=== PATIENT | male | born 2000 | race American Indian/Alaskan Native ===

== ENCOUNTER 2025-07-22 16:17 | Emergency (ER) | payer SELFPAY ==
[~2025-07-22] VITALS: Ht 180.3 cm; Wt 75.0 kg
[~2025-07-22 16:17] MED LIST: LISD30CA2 PO; PROP20TA6 PO
[2025-07-22 16:53] LABS: MEAN PLATELET VOLUME 7.8 FL (7.4-10.4); RED CELL DISTRIBUTION WIDTH 13.8 % (11.5-14.5)
[2025-07-22 17:17] LABS: CREATININE 0.95 MG/DL (0.60-1.10); ETHANOL < 10 MG/DL (<10); TOTAL CARBON DIOXIDE 25.8 MMOL/L (24-32); eCRCL 127 ML/MIN; eGFR > 90 ML/MIN
[2025-07-22] MEDS: ziprasidone IM 20mg inj **IM only IM ONE (19:06)
[2025-07-22 20:00] LABS: LEUKOCYTE ESTERASE ,URINE NEGATIVE (Neg); NITRITES, URINE NEGATIVE (Neg); OCCULT BLOOD,URINE NEGATIVE (Neg)
[2025-07-22 20:02] LABS: UA COLLECTION TYPE NON-SPECIFIED
[2025-07-22 20:20] LABS: URINE AMPHETAMINE SCREEN NEGATIVE (Neg); URINE BARBITUATE SCREEN NEGATIVE (Neg); URINE BENZODIAZEPINES SCREEN NEGATIVE (Neg); URINE CANNABINOID SCREEN POSITIVE (Neg); URINE COCAINE SCREEN NEGATIVE (Neg); URINE METHADONE SCREEN NEGATIVE (Neg); URINE OPIATE SCREEN NEGATIVE (Neg); URINE PHENCYCLIDINE SCREEN NEGATIVE (Neg)
[2025-07-23] MEDS ORDERED: NO HOME MEDS (02:52)
--- NOTE | 2025-07-23 06:58 | Physician Documentation ---
History of Present Illness General Chief Complaint: 5150 Stated Complaint: HOLD Time Seen by MD: 06:49 Mode of Arrival: Police History of Present Illness Initial Comments History obtained from a letter written by the patient's father. The patient is a 24-year-old male who arrived here on a 5150 hold. He has a history of mental illness and has been held previously for 1-2 months in [place]. His father sent a letter with him expressing serious concerns that he is a danger to himself and others. He has been having delusions and a desire to obtain a fire arm. He hears voices according to his father and talks to them. In the emergency department he became agitated to the degree that required an injection of Geodon last night. He stopped taking all prescribed medications about three weeks ago. Medication Reconciliation Allergies: Coded Allergies: pineapple (Unverified Allergy, Unknown, 07/22/25) Miscellaneous Medications Home Med List (No Home Medications), (Reported) Review of Systems ROS Unable to obtain due to mental illness. Physical Exam Physical Exam Vital Signs: Temperature: 97.6, Source: Oral, Heart Rate: 64, Respiratory Rate: 16, BP: 102/64, Pulse Oximetry: 99, Weight: 75.000 Oxygen Flow Rate: 0 Physical Exam Physical Exam Vitals and nursing note reviewed. Constitutional: General: Patient is awake, alert, oriented x 4 in no acute distress and well appearing. Speech is clear and lucid. Appearance: Patient is not ill-appearing, toxic-appearing or diaphoretic. HENT: Head: Normocephalic and atraumatic. Mouth/Throat: Mouth: Mucous membranes are moist. Pharynx: Oropharynx is clear. Eyes: General: No scleral icterus. Extraocular Movements: Extraocular movements intact. Pupils: Pupils are equal, round, and reactive to light. Neck: Supple, no Kernig or Brudzinski sign. Cardiovascular: Rate and Rhythm: Normal rate and regular rhythm. Heart sounds: No murmur heard. Pulmonary: Effort: No respiratory distress. Breath sounds: No wheezing, rhonchi or rales. Abdominal: General: There is no distension. Palpations: There is no fluid wave, hepatomegaly or mass. Tenderness: There is no abdominal tenderness. There is no guarding. Musculoskeletal: General: No swelling or deformity. Skin: Coloration: Skin is not jaundiced. Findings: No erythema or rash. Neurological: Mental Status: Patient is alert. Progress Results/Orders Results/Orders Orders - YAMEL MENDEZ MD Risperidone Tablet (Risperdal Tablet) (07/23/25 08:00) Behavioral Restraints (07/23/25 ) Completed Orders - YAMEL MENDEZ MD Ziprasidone Im Inj. (Geodon ImIm Onl (07/23/25 16:25) Ziprasidone Im Inj. (Geodon ImIm Onl (07/23/25 16:26) Diphenhydramine Inj (Benadryl Inj.) (07/23/25 17:45) Lorazepam Inj (Ativan Inj) (07/23/25 17:45) Medications Received in ER Medications (Trade) Dose Ordered Sig/Jennie Route PRN Reason Start Time Stop Time Status Last Admin Dose Admin (Geodon IMIM ONLY) 40 mg ONCE ONCE IM 07/23/25 16:25 07/23/25 16:27 DC 07/23/25 16:29 40 MG (Benadryl inj.) 50 mg ONCE ONCE IM 07/23/25 17:45 07/23/25 17:46 DC 07/23/25 17:51 50 MG (Ativan inj) 2 mg ONCE ONCE IM 07/23/25 17:45 07/23/25 17:46 DC 07/23/25 17:50 2 MG Vital Signs 07/22/25 07/22/25 07/22/25 07/22/25 16:25 16:43 17:15 18:30 Temp 98.0 Pulse 102 Resp 18 15 16 16 B/P (MAP) 125/89 Pulse Ox 99 O2 Flow Rate 0 07/22/25 07/22/25 07/22/25 07/22/25 18:31 18:45 18:45 19:00 Temp 97.6 97.6 97.5 97.5 Pulse 68 71 71 62 Resp 14 18 18 20 B/P (MAP) 120/70 (87) 119/67 (84) 119/67 (84) 105/66 (79) Pulse Ox 99 99 97 97 07/22/25 07/22/25 07/23/25 07/23/25 19:15 19:30 08:05 17:20 Temp 97.2 97.6 Pulse 60 64 100 Resp 20 16 16 20 B/P (MAP) 99/60 (73) 102/64 (77) 113/78 (90) Pulse Ox 99 99 100 O2 Flow Rate 0 07/23/25 07/23/25 07/23/25 17:35 17:50 17:50 Pulse 72 112 Resp 18 22 20 B/P (MAP) 123/78 (93) 109/63 (78) Pulse Ox 95 98 O2 Flow Rate 0 0 Laboratory Tests Test 07/22/25 16:30 07/22/25 16:48 07/22/25 19:35 SARS-CoV-2 Antigen (Rapid) Negative White Blood Count 7.1 Red Blood Count 4.62 L Hemoglobin 14.1 Hematocrit 41.1 L Mean Corpuscular Volume 89.0 Mean Corpuscular Hemoglobin 30.5 Mean Corpuscular Hemoglobin Concent 34.3 Red Cell Distribution Width 13.8 Platelet Count 268 Mean Platelet Volume 7.8 Neutrophils (%) (Auto) 76.2 H Lymphocytes (%) (Auto) 17.8 L Monocytes (%) (Auto) 5.1 Eosinophils (%) (Auto) 0.5 Basophils (%) (Auto) 0.4 Neutrophils # (Auto) 5.4 Lymphocytes # (Auto) 1.3 Monocytes # (Auto) 0.4 Eosinophils # (Auto) 0.0 Basophils # (Auto) 0.0 CBC Comment Sodium Level 135 Potassium Level 3.1 L Chloride Level 99 Carbon Dioxide Level 25.8 Anion Gap 10 Blood Urea Nitrogen 5 L Creatinine 0.95 Estimated GFR/1.73 m2 > 90 BUN/Creatinine Ratio 5.3 L Glucose Level 98 Calcium Level 8.7 Albumin 4.4 Thyroid Stimulating Hormone (TSH) 1.14 Chemistry Comments Ethyl Alcohol Level < 10 Urine Specimen Description Non-specified Urine Color Yellow Urine Clarity Clear Urine pH 6.0 Urine Specific [place] <=1.005 Urine Protein Negative Urine Glucose (UA) Negative Urine Ketones Negative Urine Occult Blood Negative Urine Nitrite Negative Urine Bilirubin Negative Urine Urobilinogen 0.2 Urine Leukocyte Esterase Negative Volume Urine Centrifuged 10 ml Urine Comment Urine Opiates Screen Negative Urine Methadone Screen Negative Urine Fentanyl Screen Negative Urine Barbiturates Screen Negative Urine Phencyclidine Screen Negative Urine Amphetamines Screen Negative Urine Benzodiazepines Screen Negative Urine Cocaine Screen Negative Urine Cannabinoids Screen Positive Drug Screen Comment Medical Decision Making Findings This patient is currently on a mental health hold, 5150. He is a danger to himself, others and appears to be gravely disabled. I am starting the patient on risperidone p.o. 0.5 mg b.i.d. 5:00 p.m.: Patient became agitated and required sedation. Departure Disposition: 30 STILL A PATIENT Impression: Primary Impression: Suicidal ideation Condition: Fair Additional Instructions: Transfer orders for [facility]: At this time there is no evidence of an emergent medical condition that would preclude (admission/transfer) to a psychiatric unit via [facility] protocol for further psychiatric, as well as medical evaluation and treatment. At this time I have no reason to believe that transfer via [facility] protocol would have serious medical compromise in the patient's health. Referrals: NO PRIMARY CARE PROVIDER (PCP) Signature Scribe Signature: . Attestation: . YAMEL MENDEZ MD Jul 23, 2025 06:58
[2025-07-23] MEDS: ziprasidone IM 20mg inj **IM only ONE (16:27)
[2025-07-23] MEDS: ziprasidone IM 20mg inj **IM only IM ONE (16:29)
[2025-07-24 09:52] VITALS: BP 118/66; PULSE 76; RESP 18; TEMP 98.6; O2SAT 97
== END 2025-07-24 09:59 ==
LOC: ER 16:19 → EDBD 16:19 → MERGE 16:19 → ER 07-24 09:59
DX: R45.851 Suicidal ideations (principal); Z79.899 Other long term (current) drug therapy; Z20.822 Contact with and (suspected) exposure to COVID-19
CPT/HCPCS: 36415; 80048; 80305; 80320; 81003; 84443; 85025; 87811; 96372; 99285; J1200; J2060; J3486

== ENCOUNTER 2025-08-09 05:54 | Inpatient (IN) | payer BC, OTHER ==
[~2025-08-09] VITALS: Ht 180.3 cm; Wt 74.5 kg
[~2025-08-09 05:54] MED LIST changes: +NO HOME MEDS
[2025-08-09] MEDS: nicotine 7mg patch - 24hr TD SCH (06:46)
[2025-08-09 06:50] LABS: LEUKOCYTE ESTERASE ,URINE NEGATIVE (Neg); NITRITES, URINE NEGATIVE (Neg); OCCULT BLOOD,URINE NEGATIVE (Neg)
[2025-08-09 06:56] LABS: UA COLLECTION TYPE VOIDED
[2025-08-09 07:05] LABS: URINE AMPHETAMINE SCREEN NEGATIVE (Neg); URINE BARBITUATE SCREEN NEGATIVE (Neg); URINE BENZODIAZEPINES SCREEN NEGATIVE (Neg); URINE CANNABINOID SCREEN NEGATIVE (Neg); URINE COCAINE SCREEN NEGATIVE (Neg); URINE METHADONE SCREEN NEGATIVE (Neg); URINE OPIATE SCREEN NEGATIVE (Neg); URINE PHENCYCLIDINE SCREEN NEGATIVE (Neg)
[2025-08-09 07:20] LABS: MEAN PLATELET VOLUME 7.9 FL (7.4-10.4); RED CELL DISTRIBUTION WIDTH 13.0 % (11.5-14.5)
[2025-08-09 07:29] LABS: CREATININE 0.80 MG/DL (0.60-1.10); TOTAL CARBON DIOXIDE 29.5 MMOL/L (24-32); eCRCL 149 ML/MIN; eGFR > 90 ML/MIN
--- NOTE | 2025-08-09 07:55 | Physician Documentation ---
History of Present Illness ~ Chief Complaint: 8980 Stated Complaint: EVAL [employer] Time Seen by MD: 06:05 Primary Medical Doctor: n/a Mode of Arrival: Police HPI Reports hallucinations, history of psych disorder. Denies medical complaints. Medication Reconciliation Allergies: Coded Allergies: pineapple (Unverified Allergy, Unknown, 07/24/25) Scheduled [place] Carbonate ([place] Carbonate), 3 CAP PO HS, (Reported) Quetiapine Fumarate* (Seroquel*), 3 TAB PO HS, (Reported) Discontinued Medications Home Med List (No Home Medications), (Reported) Discontinued Reason: Other Lisdexamfetamine Dimesylate (Vyvanse), 1 CAP PO QAM, (Reported) Discontinued Reason: Other Propranolol Hcl (Propranolol Hcl), 1 TAB PO TID, (Reported) Discontinued Reason: Other Past Medical History Past Medical History: No Pertinent History Review of Systems All Other Systems at this time: Reviewed and Negative Physical Exam Vital Signs: RN Vital Signs have been reviewed: Yes, Temperature: 98.3, Source: Oral, Heart Rate: 114, Respiratory Rate: 16, BP: 141/101, Pulse Oximetry: 97, Weight: 74.090 Oxygen Flow Rate: 0 Physical Exam HEENT: PERRL, moist oral mucosa, EOMI Pulmonary: No respiratory distress MSK: no deformity Skin: w/d/i, no rash Neuro: alert, nonfocal Psych: normal affect Progress Results/Orders Results/Orders Orders - GARDENIA MACKENZIE MD Nicotine 7mg Patch - 24hr (Habitrol Patc (08/09/25 08:00) Covid19 Binax Poc Result Entry (08/09/25 06:43) Close Observation Level (08/09/25 10:46) Completed Orders - GARDENIA MACKENZIE MD Cbc/Diff (08/09/25 06:32) CMP (08/09/25 06:32) Urinalysis, Cult If Indicated (08/09/25 06:32) Drug Screen, Urine (08/09/25 06:32) Regular Diet (08/09/25 Lunch) Lorazepam Tablet (Ativan Tablet) (08/09/25 07:10) [place] Level (08/09/25 10:49) Vital Signs 08/09/25 08/09/25 08/09/25 08/09/25 06:05 06:51 07:19 09:51 Temp 98.3 Pulse 114 Resp 16 16 16 B/P (MAP) 141/101 Pulse Ox 97 O2 Flow Rate 0 Laboratory Tests Test 08/09/25 06:15 08/09/25 06:45 08/09/25 06:54 Urine Specimen Description Voided Urine Color Straw Urine Clarity Clear Urine pH 6.5 Urine Specific [place] <=1.005 Urine Protein Negative Urine Glucose (UA) Negative Urine Ketones Negative Urine Occult Blood Negative Urine Nitrite Negative Urine Bilirubin Negative Urine Urobilinogen 0.2 Urine Leukocyte Esterase Negative Urine Culture Indicated Not ind Volume Urine Centrifuged 10 ml Urine Comment Urine Opiates Screen Negative Urine Methadone Screen Negative Urine Fentanyl Screen Negative Urine Barbiturates Screen Negative Urine Phencyclidine Screen Negative Urine Amphetamines Screen Negative Urine Benzodiazepines Screen Negative Urine Cocaine Screen Negative Urine Cannabinoids Screen Negative Drug Screen Comment SARS-CoV-2 Antigen (Rapid) Negative White Blood Count 6.7 Red Blood Count 4.62 L Hemoglobin 13.7 L Hematocrit 40.2 L Mean Corpuscular Volume 87.2 Mean Corpuscular Hemoglobin 29.7 Mean Corpuscular Hemoglobin Concent 34.1 Red Cell Distribution Width 13.0 Platelet Count 214 Mean Platelet Volume 7.9 Neutrophils (%) (Auto) 74.5 Lymphocytes (%) (Auto) 15.0 L Monocytes (%) (Auto) 8.6 Eosinophils (%) (Auto) 1.6 Basophils (%) (Auto) 0.3 Neutrophils # (Auto) 5.0 Lymphocytes # (Auto) 1.0 L Monocytes # (Auto) 0.6 Eosinophils # (Auto) 0.1 Basophils # (Auto) 0.0 CBC Comment Sodium Level 136 Potassium Level 3.4 L Chloride Level 98 L Carbon Dioxide Level 29.5 Anion Gap 9 Blood Urea Nitrogen 8 Creatinine 0.80 Estimated GFR/1.73 m2 > 90 BUN/Creatinine Ratio 10.0 Glucose Level 85 Calcium Level 8.4 L Total Bilirubin 0.9 Aspartate Amino Transf (AST/SGOT) 49 H Alanine Aminotransferase (ALT/SGPT) 72 Alkaline Phosphatase 90 Total Protein 7.7 Albumin 4.0 Globulin 3.7 Albumin/Globulin Ratio 1.1 Chemistry Comments [place] Level 1.0 Medical Decision Making Findings Medically clear for [facility] evaluation. Will sign over to oncoming ER physician for disposition. Differential Dx:Considerations: Include: Alcohol abuse, Bipolar disorder, Encephaloathy, Personality disorder, Schizophrenia, Substance abuse, Suicidal Departure Disposition: 30 STILL A PATIENT Impression: Primary Impression: Hallucination Condition: Stable Discharge Instructions: Psychosis Referrals: NO PRIMARY CARE PROVIDER (PCP) Education Educated: Patient Signature Scribe Signature: . Attestation: . GARDENIA MACKENZIE MD Aug 09, 2025 07:55
[2025-08-09] MEDS ORDERED: LITH300C PO (08:09)
[2025-08-09] MEDS ORDERED: QUET-1 PO (08:12)
[2025-08-09] MEDS ORDERED: nicotine 21mg patch - 24 hr TD ONE (10:50)
[2025-08-09 14:10] VITALS: BP 113/79; PULSE 85; RESP 16; TEMP 98.5; O2SAT 98
[2025-08-09] MEDS ORDERED: magnesium hydroxide 30ml (MOM) UD suspension PO PRN (17:25)
[2025-08-09] MEDS ORDERED: loperamide 2mg capsule PO PRN (17:25)
[2025-08-09] MEDS ORDERED: mag hydrox/Alum hydrox/simeth 30ml oral suspension PO PRN (17:25)
[2025-08-09 19:00] VITALS: RESP 16
[2025-08-09 20:00] VITALS: RESP 16
[2025-08-09] MEDS: NICOTINE POLACRILEX 2 MG LOZENGE BC PRN (20:03)
[2025-08-10 07:30] VITALS: BP 92/52; PULSE 66; RESP 16; TEMP 97.2; O2SAT 99
[2025-08-10] MEDS ORDERED: nicotine 21mg patch - 24 hr TD SCH (08:00)
[2025-08-10 09:31] LABS: CHOL/HDL RATIO 4.0 (0.00-4.99); LDL CHOLESTEROL 78 MG/DL (50-100)
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
[2025-08-10] MEDS: potassium Cl 20 mEq SR tablet PO PRN (12:56)
--- NOTE | 2025-08-10 15:28 | HISTORY AND PHYSICAL ---
History & Physical Providers to ~ History of Present Illness Reason for Admit\Complaint: on a 5150 hold for grave disability History of Present Illness Patient is very poor historian unable to give me any reliable history. Psychiatric H&P records reviewed in according to them patient has auditory and possible visual hallucination as well as paranoid thoughts. Patient denies having any acute or chronic medical issues. Patient wanted to get pain medication for unspecified musculoskeletal pain Allergies: Coded Allergies: pineapple (Unverified Allergy, Unknown, 07/24/25) Home Medications Home Medications Active Reported Seroquel* (Quetiapine Fumarate) 100 Mg Tablet 3 Tab PO HS [place] Carbonate 300 Mg Capsule 3 Cap PO HS Past Medical History Past Medical History No pertinent medical history Past Surgical History Surgical History Comment cyst removal from right buttock Family History Family History: Patient reports no known family medical history. Past Social History Social History Comment Smokes cannabis and drink alcohol occasionally, denies using any illicit drugs smokes cigarettes half pack per day Exam Vitals: Vital Signs Date Time Temp Pulse Resp B/P (MAP) Pulse Ox O2 Delivery O2 Flow Rate FiO2 08/10/25 14:44 16 08/10/25 07:30 97.2 66 92/52 (65) 99 Room Air 0.0 General: General-patient not in any acute distress, alert awake , age-appropriate, looks comfortable HEENT-atraumatic normocephalic, neck supple without elevated JVD, No lymphadenopathy bilaterally. Eyes-no icterus or pallor seen in eyes Chest-clear to auscultation bilaterally, breathing nonlabored no tachypnea, no wheezing, no crepitation, no crackles. Heart-S1-S2 normal, regular heart rate no murmur Abdomen bowel sounds positive on auscultation, soft nondistended nontender no guarding, no rigidity Skin no active skin rash Neurology-grossly intact, nonfocal alert awake cooperated during physical examination Extremity- no pedal edema able to move all 4 extremities, ambulates Diagnostic Data Last Recorded Lab Results: 08/09/25 0654 08/09/25 0654 Additional Plan He is on a 5150 hold for grave disability. Patient is very poor historian unable to give me any reliable history. Psychiatric H&P records reviewed in according to them patient has auditory and possible visual hallucination as well as paranoid thoughts. Patient denies having any acute or chronic medical issues. Further management of unspecified psychosis, mood disorder in grave disability as per psychiatric team. We will continue to follow patient from hospitalist team as needed or as per protocol Date of Service: Aug 10, 2025 Billing Provider: JENIFER CRABTREE MD Common Visit Codes: [id number] INP/OBS CARE (LOW) JENIFER CRABTREE MD Aug 10, 2025 15:28
[2025-08-10 19:00] VITALS: RESP 15; O2SAT 99
[2025-08-10 20:00] VITALS: BP 101/57; PULSE 65; RESP 15; TEMP 98; O2SAT 99
[2025-08-10] MEDS ORDERED: PALIPERIDONE 3 MG TAB.ER.24 PO SCH (21:00)
[2025-08-10] MEDS: PALIPERIDONE 3 MG TAB.ER.24 PO SCH (21:16)
[2025-08-11 07:30] VITALS: RESP 16; O2SAT 99
[2025-08-11 08:10] VITALS: BP 129/77; PULSE 121; RESP 16; TEMP 97.7; O2SAT 99
--- NOTE | 2025-08-11 09:31 | PROGRESS NOTE ---
Progress Note Dictate Providers to CC ~ Central Line/PICC still needed: N\\A Antibiotic Ordered?: No MRSA Education MRSA Education Provided to pt: No Objective Vitals Vital Signs Date Time Temp Pulse Resp B/P (MAP) Pulse Ox O2 Delivery O2 Flow Rate FiO2 08/11/25 08:10 97.7 121 16 129/77 (94) 99 Room Air 0.0 Lab Results: 08/09/25 0654 08/09/25 0654 Problem\\Assessment\\Plan Problems/Diagnosis: (1) Unspecified psychosis (2) Unspecified mood [affective] disorder (3) Gravely disabled Psychiatrist's Progress Note Date of Service: Aug 11, 2025 Notes CHART REVIEW The pt was placed on a 5150 hold for GD after police were called for a welfare check. The pt reports that he was outside of a local grocery store trying to help a man whom he does not know, police were called and the pt was brought to the hospital for a mh eval. The pt states that he has been to other psychiatric hopsitals in the past and that he believes it's been 4-5 times and that it's the same thing everytime, he gets in the hospital "they see nothing is wrong with me" and then he returns home. The pt does endorse A/H "sometimes" but that he doesn't believe he has a mental health diagnosis, he does however, receive treatment from the psychiatric care center. The pt is currently unemployed, receives SSI benefits, lives with his mother and father and may be facing eviction. The pt does not have a viable discharge plan at this time. ASSESSMENT The patient was interviewed in observation room. The patient was actively ambulating in the hallway. The patient endorses "I'm doing good." Denies SI. Denies HI. The patient endorses adequate sleep and food intake The patient is stable no acute distress noted. The patient presents as Per staff report patient is medication compliant. Per staff report no abnormal behaviors. Will continue daily assessment and adjusting treatment as needed. Closely monitor behavior and response to medication during hospitalization. Results Of any Diagn. Testing REVIEW OF LABS WBC 6.7 RBC 4.62 HEMOGLOBIN 13.7 HEMATOCRIT 40.2 PLATELET 214 SODIUM 136 POTASSIUM 3.4 CHLORIDE 98 ANION GAP 9 BUN 8 CREATININE 0.80 ALT 72 AST 49 CALCIUM 8.4 ALBUMIN 4.0 URINALYSIS NEGATIVE URINE TOX SCREEN NEGATIVE HEMOGLOBIN A1C 5.3 TRIGLYCERIDES 128 CHOLESTEROL 131 LDL 78 HDL 33 TSH 0.46 Speech: Other Eye Contact: Normal Motor Activity: Normal Affect: Full Mood: Euthymic Orientation Impairment: None Memory Impairment: None Attention: Normal Hallucinations: None Other: None Suicidality: None Homicidality: None Delusions: None Behavior: Cooperative Insight: Fair Judgment: Fair Treatment INVEGA SUSTENNA 156 MG IM-LAST GIVEN 08/07/2025 PALIPERIDONE 3MG PO QHS Continue LITHIUM 900 MG P.O. Q.H.S. Decrease SEROQUEL 150 MG P.O. Q.H.S. TRAZODONE 50 MG P.O. Q.H.S. PRN THORAZINE 50 MG P.O. Q.6 PRN AGITATION/ANXIETY HYDROXYZINE 50 MG P.O. Q.6 PRN ANXIETY/AGITATION BENADRYL 50 MG P.O. Q.6 PRN EPS [id number]-Patient is unable to formulate a plan for safety. We are still titrating medications to an effective dose while maintaining a therapeutic environment to prevent decompensation and readmission. Monitoring by Staff, Milieu, Group, and Individual counseling as needed -- According to the [place] Suicide Assessment the above named patient is on Q15 MINUTE CHECKS. Total time spent 60 minutes on REVIEW OF Clinical notes [X ] RN notes [X] PCT documentation [X] SW notes Labs [ X] Medications [X] Care trends/care activity [X] Vitals [X] DISCUSSION WITH blood tester [X] Staff SW Treatment Team [X] Discharge UNSURE AT THIS TIME. DISCHARGE HOME ONCE STABLE CODING VISIT-PSYCHIATRY Date of Service: Aug 11, 2025 Billing Provider: MINDY LOPES APRN Psych Common Visit Codes: [id number] INP/OBS CARE(Mod) MINDY LOPES APRN Aug 11, 2025 09:31
[2025-08-11 11:51] VITALS: PULSE 95
[2025-08-11 19:00] VITALS: RESP 18; O2SAT 98
[2025-08-11 20:00] VITALS: BP 113/66; PULSE 85; RESP 18; TEMP 97.9; O2SAT 98
[2025-08-12 07:00] VITALS: RESP 16; O2SAT 98
[2025-08-12 08:00] VITALS: BP 99/61; PULSE 70; RESP 16; TEMP 97.1; O2SAT 98
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
--- NOTE | 2025-08-12 18:16 | PROGRESS NOTE- Residence ---
Progress Note - Resident Providers to CC Resident Creating Document: CASE LINDSEY RES CC: NATASHA MENDEZ DO ~ Antibiotic Timeout Antibiotic Ordered?: No Subjective Patient did not have any medical symptoms which required to be addressed; had no chest pain, abdominal pain, diarrhea. Objective Vital Signs Date Time Temp Pulse Resp B/P (MAP) Pulse Ox O2 Delivery O2 Flow Rate FiO2 08/12/25 12:47 18 08/12/25 08:00 97.1 70 99/61 (74) 98 Room Air 08/12/25 07:00 0.0 Result Diagram: 08/09/25 0654 08/11/25 0737 General-patient not in any acute distress, alert awake , age-appropriate, looks comfortable HEENT-atraumatic normocephalic, neck supple without elevated JVD, No lymphadenopathy bilaterally. Eyes-no icterus or pallor seen in eyes Chest-clear to auscultation bilaterally, breathing nonlabored no tachypnea, no wheezing, no crepitation, no crackles. Heart-S1-S2 normal, regular heart rate no murmur Abdomen bowel sounds positive on auscultation, soft nondistended nontender no guarding, no rigidity Skin no active skin rash Neurology-grossly intact, nonfocal alert awake cooperated during physical examination Extremity- no pedal edema able to move all 4 extremities, ambulates Plan Plan Psychiatric H&P records reviewed in according to them patient has auditory and possible visual hallucination as well as paranoid thoughts. Patient denies having any acute or chronic medical issues. Unspecified psychosis Unspecified mood disorder Gravely disabled Manage as per psychiatric team Patient did not have him any medical complaints or symptoms at this point As the hospitalist team we will continue to monitor the patient and intervene if any active symptoms noted. [facility] resident Date of Service: Aug 12, 2025 Billing Provider: NATASHA MENDEZ DO Common Visit Codes: [id number] INP/OBS CARE(LOW) CASE LINDSEY RES Aug 12, 2025 18:16 NATASHA MENDEZ DO Aug 12, 2025 18:41
[2025-08-12 19:30] VITALS: BP 97/67; PULSE 84; RESP 15; TEMP 98.4; O2SAT 98
[2025-08-12 19:31] VITALS: RESP 15; O2SAT 98
[2025-08-13 07:35] VITALS: RESP 16; O2SAT 98
[2025-08-13 08:23] VITALS: BP 108/60; PULSE 51; RESP 16; TEMP 98.1; O2SAT 98
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
[2025-08-13 19:44] VITALS: BP 105/62; PULSE 62; RESP 18; TEMP 98.6; O2SAT 100
[2025-08-13 19:51] VITALS: RESP 18; O2SAT 100
[2025-08-14 07:00] VITALS: BP 115/63; RESP 16; TEMP 98.1; O2SAT 97
[2025-08-14 07:30] VITALS: RESP 16; O2SAT 97
--- NOTE | 2025-08-14 10:46 | DISCHARGE SUMMARY ---
Discharge Summary Providers to CC ~ Discharge Summary Admission Diagnosis: UNSPECIFIED PSYCHOSIS.UNSPECIFIED MOOD DISORDER.GRAVELY DISABLED. Hospital Course DATE OF ADMISSION: DATE OF DISCHARGE: Discharge Diagnosis\\Comment: UNSPECIFIED PSYCHOSIS. UNSPECIFIED MOOD DISORDER. GRAVELY DISABLE Operations\\Procedures: NONE Consultants: MEDICAL TEAM Complications: NONE Condition on DC: Stable 2 or more antipsychotic used: No 2/more antipsychotic addressed: No Does Patient smoke: Yes Smoking education given.: Yes Continued Medications: [place] Carbonate (C[place] Carbonate) 300 Mg Capsule 3 CAP PO HS for 14 Days, #42 CAP (This prescription has been renewed) Discontinued Medications: Quetiapine Fumarate* (Seroquel*) 100 Mg Tablet 3 TAB PO HS, TAB Discharge Summary: CHART REVIEW The pt was placed on a 5150 hold for GD after police were called for a welfare check. The pt reports that he was outside of a local grocery store trying to help a man whom he does not know, police were called and the pt was brought to the hospital for a mh eval. The pt states that he has been to other psychiatric hospitals in the past and that he believes it's been 4-5 times and that it's the same thing everytime, he gets in the hospital "they see nothing is wrong with me" and then he returns home. The pt does endorse A/H "sometimes" but that he doesn't believe he has a mental health diagnosis, he does however, receive treatment from the psychiatric care center. The pt is currently unemployed, receives SSI benefits, lives with his mother and father and may be facing eviction. The pt does not have a viable discharge plan at this time. Patient actively seen and examined on day of discharge 08/14/2025, by myself, TATIANA Meyer. The patient is interviewed in psychiatric exam room. The patient endorses "Good." Denies SI. Denies HI. Denies AVH. Niranjan was able to formulate a safety plan which includes going to the emergency room if symptoms return or worsen. Call [phone] or [phone] for immediate assistance if necessary During his hospital stay, Niranjan received multidisciplinary treatment he adhered to his medication regimen and has been pleasant and cooperative. He denies any suicidal ideation (SI), homicidal ideation (HI), auditory/visual hallucination (HI). Staff has reported no behavioral issues, and the patient has been sleeping well, adequate food intake, with no mood or behavioral changes noted. The decision to discharge Niranjan was made in consensus with the treatment team, including the social media assistant, community service director, and broker in charge on duty. The patient was discharged with a 14 day supply of medications. MENTAL STATUS EXAM APPEARANCE: APPROPRIATELY. DRESSED IN STREET CLOTHING. SPEECH: CIRCUMSTANTIAL EYE CONTACT: NORMAL AFFECT: CONGRUENT WITH MOOD MOOD: "GOOD" ORIENTATION IMPAIRMENT: NONE MEMORY IMPAIRMENT: NONE ATTENTION: NORMAL HALLUCINATIONS: NONE SUICIDALITY: NONE HOMICIDALITY: NONE DELUSIONS: NONE BEHAVIOR: COOPERATIVE, PLEASANT JUDGMENT: FAIR INSIGHT: FAIR Continue Current Inpatient Psychotropic Regimen @ home Follow-Up with Psychiatric Provider Safety Plan Discussed DISCHARGE CONDITION: His readiness for discharge is supported by his stable mental status, adherence to treatment, and proactive approach to managing his mental health. Denies SI. Denies HI. Denies A/V/H. The patient has been informed to continue follow-up care to ensure ongoing support and monitoring. Patient discharged to home. *Problems/Diagnosis: (1) Unspecified psychosis (2) Unspecified mood [affective] disorder (3) Gravely disabled Total Time Spent on D/C: > 30 Minutes Counseling Services Smoking & Tobacco Cessation: > 10 Minutes CODING VISIT-PSYCHIATRY Date of Service: Aug 14, 2025 Billing Provider: MINDY LOPES APRN Psych Common Visit Codes: 52310-ZLQ/OBS DISCH DAY >30min MINDY LOPES APRN Aug 14, 2025 09:44
[2025-08-14] MEDS ORDERED: LITH300C PO (10:47)
== END 2025-08-14 11:50 | disposition home or self-care (01) | DRG 885 ==
LOC: ER 05:54 → UNDOADMIN 13:10 → ED HOLD 13:10 → ADULT MH 13:10 → ED HOLD 14:05 → ADULT MH 14:10
PROVIDERS: ADMIT Psychiatry & Neurology Psychiatry; ATTEND Psychiatry & Neurology Psychiatry
PROC: GZHZZZZ Group Psychotherapy (ICD-10-PCS; principal; 2025-08-10)
PROC: GZ51ZZZ Individual Psychotherapy, Behavioral (ICD-10-PCS; 2025-08-10)
DX: F39 Unspecified mood [affective] disorder (principal); F17.210 Nicotine dependence, cigarettes, uncomplicated; Z20.822 Contact with and (suspected) exposure to COVID-19; F41.9 Anxiety disorder, unspecified; Z56.0 Unemployment, unspecified
CPT/HCPCS: 36415; 80053; 80061; 80178; 80305; 81003; 83036; 84132; 84443; 85025; 87081; 87811; 99285; Q0177

== ENCOUNTER 2025-08-25 07:33 | Inpatient (IN) | payer BC ==
[~2025-08-25] VITALS: Ht 180.3 cm; Wt 75.1 kg
[~2025-08-25 07:33] MED LIST changes: -LISD30CA2 PO; +LITH300C PO; -NO HOME MEDS; -PROP20TA6 PO
[2025-08-25] MEDS ORDERED: magnesium hydroxide 30ml (MOM) UD suspension PO PRN (14:55)
[2025-08-25] MEDS ORDERED: mag hydrox/Alum hydrox/simeth 30ml oral suspension PO PRN (14:55)
[2025-08-25] MEDS ORDERED: loperamide 2mg capsule PO PRN (14:55)
[2025-08-25] MEDS: nicotine 21mg patch - 24 hr TD ONE (15:33)
[2025-08-25] MEDS: NICOTINE POLACRILEX 2 MG LOZENGE BC PRN (15:34)
[2025-08-25 15:53] VITALS: BP 120/76; PULSE 98; RESP 14; TEMP 98.7; O2SAT 98
[2025-08-25 16:17] VITALS: RESP 14; O2SAT 98
--- NOTE | 2025-08-25 17:37 | HISTORY AND PHYSICAL ---
History of Present Illness Primary Medical Doctor: n/a Allergies: Coded Allergies: pineapple (Unverified Allergy, Unknown, 07/24/25) Past Family History Patient History: Patient reports no known family medical history. JULISSA BARRAGAN [facility] Aug 25, 2025 17:36
[2025-08-25] MEDS ORDERED: LIT300C PO (18:01)
[2025-08-25 19:00] VITALS: RESP 16; O2SAT 99
[2025-08-25 20:00] VITALS: BP 101/61; PULSE 72; RESP 16; TEMP 98.2; O2SAT 98
[2025-08-26 06:47] LABS: MEAN PLATELET VOLUME 8.1 FL (7.4-10.4); RED CELL DISTRIBUTION WIDTH 13.4 % (11.5-14.5)
[2025-08-26 07:00] VITALS: RESP 12; O2SAT 98
[2025-08-26 07:28] LABS: CHOL/HDL RATIO 3.9 (0.00-4.99); CREATININE 0.82 MG/DL (0.60-1.10); LDL CHOLESTEROL 72 MG/DL (50-100); TOTAL CARBON DIOXIDE 24.0 MMOL/L (24-32); eCRCL 148 ML/MIN; eGFR > 90 ML/MIN
[2025-08-26 08:00] VITALS: BP 93/58; PULSE 68; RESP 12; TEMP 97.9; O2SAT 98
[2025-08-26] MEDS: nicotine 21mg patch - 24 hr TD SCH (08:22)
--- NOTE | 2025-08-26 09:47 | HISTORY AND PHYSICAL ---
History of Present Illness Primary Medical Doctor: n/a History of Present Illness H&P Admission date: 08/25/25 Length of stay: 1 day Status: 5150 CC: HPI: Admitted on 50 and 50 for danger to self, was released from a psychiatric hold one day before presenting to the emergency department again. After being discharged from a psychiatric facility, he started doing substances, including Smoky, marijuana and drinking alcohol, which mother attributes to his current presentation. Presented for suicide ideation with plan to shoot himself in the head. Per [facility] progress note his mother shared that he was making bizarre statements was disoriented not knowing what day it was or where he was. Making nonsensical statements and hallucinating was pacing around the parking lot, mumbling to himself. Was unable to articulate how he would meet his basic needs like how to get food for example he said that he would use his card to get food, but the card was a [place] state identification c appear to be responding to unseen stimuli. Reports that he gets a long acting injectable through the psychiatric care center. States he is not here for "any reason at all" states he smoked some marijuana and "freaked out" . States he was a concepcion visita for one week. States just wants sleeping medication - would like to take quetiapine 200 mg po qhs for sleep tonight. Denies that he has schizophrenia and other symptoms of psychosis. States he [facility]. States he is concerned about not being released in a prompt amount of time because he is uninsured. Denies suicidal ideation- states this was written down because they needed to put something to put on the hold. States he needs a safe space to "work on myself". Denies feeling depressed but endorses sadness situationally while admitted to the unit, states that he is just trying to "relax and chill" and states then he made the mistake of calling his dad. Denies auditory hallucinations, paranoia currently. States occasionally he will have weird feelings like he is at war, states he has previously hallucinated "a big ass g odzilla creature" will have flashbacks of being in [place] even though he has never been to war. States this are "rare rare occasions" and not related to his current situation. States he didn't have his sleeping medication so he bought marijuana instead. States he needs quetiapine otherwise he will be up all night. Denies daily anxiety that interferes with his functioning. Endorses poor nutritional intake. Denies rishabh, states he will only be hyperactive when he drinks enough coffee but in genreal he feels like he never has enough erngy. Endorse previous depressive episode one year ago, states it resolved without medication. - Psychiatric History Age of initial treatment: "I never had treatment" Outpatient: not currently Inpatient: Records previously, it was a psychiatric facility in [place] for one month, [facility] was an inpatient facility called [facility] for 1 week- states it was "just to be observed" Historical Diagnoses (w/year): "nothing" "because nothing is wrong with me" Access to firearms: denies Hx of suicide attempts: denies Hx of self-harm: endorses hx of self harm, cut x1 while in prison Hx of violence: denies Legal hx: has been arrested and incarcerated multiple times Historical Psych Medications: quetiapine, haloperidol decanoate- states it made it feel worse, Depakote, Vyvanse, propranolol - Substance Use History Over the counter medications: sleeping medication like Benadryl Caffeine: "lots" in the Nicotine: cigarettes ppd Alcohol: "occasionally" states he will drink until the alcohol runs out and then will stop drinkign, denies hx of alcohol withdrawal seizures. Cannabis: once a week, leads to psychotic symptoms - states his dad will get mad Stimulants: denies Opioids: denies Hx of IVDU: denies Other (Inhalants, Hypnotics, Hallucinogens, Rx): denies DUI: treatment/rehab hx: Gambling: No known hx of IVDU No known hx of meeting criteria for a substance use disorder - - Social history Born and raised in [place], [place], has a 1/2 brother and 1/2 sister, parents still . Endorse physical discipliine but denies abuse. Highest grade completed: high school Family History Mental Illness: "my dad probably but he doesnt get help" Alcohol/other drug use: endorses alcoholism runs in the Suicide completions: denies - Current Environment Living Situation: [facility] Relationships: dog- vera jonelle duran, parents are supportive (but he is not allowed to stay at their house) Spiritual: endorses being spiritual Hobbies/ Other interests: "nothing really makes me happy" states that every in life is boring, states this is why he likes to take adderall but he hasn't been able to attain it because he is living at the jail - Work Current occupation: unemployed on SSI Income/rent/concerns about paying bills or feeding family: denies Hx: denies - - Mental Status Evaluation General Appearance: Hospital scrubs, poorly groomed, Eye contact: consistent with social norms Demeanor: guarded, Orientation: to person, place, time, situation Speech: Appropriate rate/rhythm/volume Psychomotor Activity: within normal range Abnormal Body Movements: none observed Mood: "good" Affect: constricted Suicidality: denies suicidal ideation Homicidally: denies Thought content: paranoia/delusions Thought process: goal-directed Thought perceptions: auditory hallucinations/visual hallucinations Attention: appear attentive Insight: good Judgment: good - - Current Medical Problems: None Medical History Cardiac HX: Denies TBI Hx: head injury 4 years ago- feel and hit a toilet Seizure Hx: denies MOISES Hx: denies - - Diagnoses Schizoaffective Tobacco use disorder - Assessment Based on initial evaluation, including interview and history obtained today, patient appears to meet criteria for Schizoaffective disorder, recently left an inpatient unit, [facility], lacks insight into current disease process minimizing marijuana use, which appears to be a contributing factor for returning to the emergency department today. Guarded on assessment was not open with this provider about being prescribed lithium requested to restart. Mallory agreed to start lithium when it was brought up that it was on his home medication list. Can you continue to deny that he has a mental health diagnosis requiring psychiatric treatment. States he just needs sleep. Well, coordinate care with family who is greatly concerned for his well-being. Will restart quetiapine for mood, sleep, psychosis, will restart lithium for mood. - Safety risk: low risk of imminent self-harm, low risk of externalized violent behaviors Plan Restart Quetiapine 300 mg Restart [place] 600 mg Maintenance therapy for tobacco use disorder: schedule nicotine patch, prn nicotine lozenges Continue Q15 min checks Continue Groups/Milieu Engagement Verbal permission to talk to parents Discharge Plan: to home with scheduled follow ups for outpatient therapy and medication management Access to firearms: Spent approximately 120 minutes reviewing records and test results, assessing and treatment planning, completing care coordination and documenting the encounter. Discussed risks, including possible adverse effects, and benefits of treatment recommendations including no treatment. Voice recognition software may have been used to dictate this note. There may be errors due to use of such software. Reporting of serious errors is appreciated. Safety plan established, reviewed, copy sent home (copy in the chart) Allergies: Coded Allergies: pineapple (Unverified Allergy, Unknown, 07/24/25) Past Family History Patient History: Patient reports no known family medical history. Past Social History Smoking: Cigarettes Assessment/Plan Problems/Diagnosis: (1) Schizoaffective disorder CODING VISIT-PSYCHIATRY Date of Service: Aug 26, 2025 Billing Provider: JULISSA BARRAGAN DNP Psych Common Visit Codes: [id number] DIAG EVAL W/MED SRVCS JULISSA BARRAGAN DNP Aug 26, 2025 09:47
[2025-08-26 19:00] VITALS: RESP 16; O2SAT 99
--- NOTE | 2025-08-26 19:17 | HISTORY AND PHYSICAL-Residence ---
History & Physical Providers to Resident Creating Document: FOSTER HYDEBLADIMIR ISRAEL, RES ~ History of Present Illness Primary Medical Doctor: n/a Reason for Admit\Complaint: Suicidal ideation History of Present Illness Luis Elias is a 24-year-old male with past medical history of substance abuse, tobacco abuse and drinking alcohol presents to the ED the with complaints of Schizoaffective , suicidal ideation with plan to shoot himself in the head. Patient is cooperative,alert and oriented x4 and fully coherent. Patient denies prior CA/CAD, CVA, cardiac arrhythmia, DVT/PE, or GIB. Patient denies current SI or HI, denies chest pain, palpitations, shortness of breath, abdominal pain, n/v/d, fever, chills, dysuria. Patient is admitted to [facility] for continued psychiatric disorder management. Allergies: Coded Allergies: pineapple (Unverified Allergy, Unknown, 07/24/25) Home Medications Home Medications Active Reported LITHIUM CARBONATE tablet ([place] Carbonate) 300 Mg Tablet.sa 3 Tab PO HS Past Medical History Past Medical History No significant past medical history Past Surgical History Surgical History Comment cyst removal from right buttock Incision and drainage of hip x 2 months back Family History Family History: Patient reports no known family medical history. Past Social History Social History Comment Smokes cannabis and drink alcohol occasionally smokes cigarettes half pack per day Smoking: Cigarettes ROS ROS Constitutional: No fever, chills, dizziness, weight gain or loss, night sweats Eyes: No pain, erythema, discharge, blurring of vision ENT: No sore throat, epistaxis, tinnitus Cardiovascular:No chest pain, palpitations, syncope, lower extremity edema, paroxysmal nocturnal dyspnea Respiratory: No Shortness of breath and cough, No hemoptysis. Gastrointestinal:No Abdominal pain, vomiting,nausea and melena. Normal appetite. No constipation,diarrhea, hematemesis, Musculoskeletal: No swelling or edema of extremities. Integumentary: No change in skin, hair, nails. No swelling, bruising, abrasions Neurologic: No weakness,No headache, neck pain, numbness or tingling of the extremities, Psychiatric: No delusions, depression, loss of interest in normal activity or change in sleep pattern, hallucinations, suicidal ideations Endocrine: No fatigue, no weakness. polydipsia, polyuria, change in appetite, heat or cold intolerance, sweating, dry skin Hematological: No bleeding, petechiae, bruising Allergies: No asthma or urticaria Exam Vitals: Vital Signs Date Time Temp Pulse Resp B/P (MAP) Pulse Ox O2 Delivery O2 Flow Rate FiO2 08/26/25 08:00 97.9 68 12 93/58 (70) 98 08/26/25 07:00 Room Air General: Awake , alert and oriented to time,place, person,not in distress HEENT: Atraumatic, normocephalic, PERRLA, EOMI, anicteric sclera ; pink conjunctiva, moist mucos membranes Neck: Trachea midline. Supple, normal range of motion, no JVD, no lymphadenopathy Chest and Respiratory: Equal breath sounds bilaterally, no tachypnea, wheezing, ronchi,rubs .Chest wall is symmetric and without deformity. Cardiac: S1, S2 heard,Regular rate and rhythm, no murmurs ,no gallops, no rubs. Abdomen: Soft, No tenderness, No guarding or rigidity, Falcon's sign negative. normal bowel sounds x4 quadrant, no hepatosplenomegaly MSK: Range of motion of all extremities are normal. There is no joint pain or joint swelling or joint erythema. There is no muscle pain or tenderness or swelling. Extremities: warm, well-perfused, No cyanosis, clubbing, 2+ pulses felt Neurological: Mental status exam: alert and consciousness, orientation, memory, speech - Cranial nerve test: Cranial nerves II-XII intact. - Motor system: Normal Nutrition, normal tone, Power 5/5, no involuntary movements - Sensory system: Intact - Reflex testing: Biceps, triceps and knee reflexes 2+ - Cerebellar: Normal Skin: Warm and dry Diagnostic Data Last Recorded Lab Results: 08/26/2562508/26/25625 Advance Care Planning Advanced Care plannin - 30 Minutes Additional Plan Schizoaffective Tobacco use disorder # management as per psychiatry team recommendation Patient denies having any acute or chronic medical issues. CBC is normal BMP is normal Hyperbilirubinemia Alcohol drinking as per his mother from H&P Total bilirubin is 1.5, follow up with direct bilirubin levels AST, ALT, ALP are in normal limits We will continue to follow patient from hospitalist team as needed or as per protocol Resident attestation The above note has been reviewed and supervised by a senior resident PGY2 Patient was seen, examined and discussed with the attending physician Alison Hyde MD Internal Medicine Resident, PGY 1 Date of Service: Aug 26, 2025 Billing Provider: DIYA THEODORE MD,CAROLINA ISRAEL, RES Aug 26, 2025 19:16
[2025-08-26 20:00] VITALS: BP 103/66; PULSE 94; RESP 16; TEMP 98; O2SAT 99
[2025-08-27 07:15] VITALS: BP 85/47; PULSE 60; RESP 16; TEMP 98.1; O2SAT 100
[2025-08-27 07:45] VITALS: BP_SYST 103; BP_SYST 117; BP_DIAS 50; BP_DIAS 56; PULSE 60; RESP 16; TEMP 98.1; O2SAT 100
[2025-08-27 07:59] VITALS: RESP 16; O2SAT 100
[2025-08-27] MEDS ORDERED: QUET100T34 PO (12:45)
[2025-08-27] MEDS ORDERED: LITH150C8 PO (12:45)
--- NOTE | 2025-08-27 19:47 | DISCHARGE SUMMARY ---
Discharge Summary Providers to CC ~ Discharge Summary Admission Diagnosis: schizoaffective disorder Discharge Diagnosis\\Comment: stable Operations\\Procedures: none Consultants: none Complications: none Condition on DC: Stable 2 or more antipsychotic used: Yes 2/more antipsychotic addressed: Yes Does Patient smoke: Yes Smoking education given.: Yes Discharge Summary: Discharge Admission date: 08/25/25 Length of stay: 2 days Status: 5150 HPI: Admitted on 50 and 50 for danger to self, was released from a psychiatric hold one day before presenting to the emergency department again. After being discharged from a psychiatric facility, he started doing substances, including Smoky, marijuana and drinking alcohol, which mother attributes to his current presentation. Presented for suicide ideation with plan to shoot himself in the head. Per [facility] progress note his mother shared that he was making bizarre statements was disoriented not knowing what day it was or where he was. Making nonsensical statements and hallucinating was pacing around the parking lot, mumbling to himself. Was unable to articulate how he would meet his basic needs like how to get food for example he said that he would use his card to get food, but the card was a [place] state identification c appear to be responding to unseen stimuli. Reports that he gets a long acting injectable through the psychiatric care center. States he is not here for "any reason at all" states he smoked some marijuana and "freaked out" . States he was a concepcion visita for one week. States just wants sleeping medication - would like to take quetiapine 200 mg po qhs for sleep tonight. Denies that he has schizophrenia and other symptoms of psychosis. States [facility]. States he is concerned about not being released in a prompt amount of time because he is uninsured. Denies suicidal ideation- states this was written down because they needed to put something to put on the hold. States he needs a safe space to "work on myself". Denies feeling depressed but endorses sadness situationally while admitted to the unit, states that he is just trying to "relax and chill" and states then he made the mistake of calling his dad. Denies auditory hallucinations, paranoia currently. States occasionally he will have weird feelings like he is at war, states he has previously hallucinated "a big ass godzilla creature" will have flashbacks of being in [place] even though he has never been to war. States this are "rare rare occasions" and not related to his current situation. States he didn't have his sleeping medication so he bought marijuana instead. States he needs quetiapine otherwise he will be up all night. Denies daily anxiety that interferes with his functioning. Endorses poor nutritional intake. Denies rishabh, states he will only be hyperactive when he drinks enough coffee but in genreal he feels like he never has enough erngy. Endorse previous depressive episode one year ago, states it resolved without medication. - Psychiatric History Age of initial treatment: "I never had treatment" Outpatient: not currently Inpatient: Records previously, it was a psychiatric facility in [place] for one month, [facility]- states it was "just to be observed" Historical Diagnoses (w/year): "nothing" "because nothing is wrong with me" Access to firearms: denies Hx of suicide attempts: denies Hx of self-harm: endorses hx of self harm, cut x1 while in [facility] Hx of violence: denies Legal hx: has been arrested and incarcerated multiple times Historical Psych Medications: quetiapine, haloperidol decanoate- states it made it feel worse, Depakote, Vyvanse, propranolol Substance Use History Over the counter medications: sleeping medication like Benadryl Caffeine: "lots" in the Nicotine: cigarettes ppd Alcohol: "occasionally" states he will drink until the alcohol runs out and then will stop drinkign, denies hx of alcohol withdrawal seizures. Cannabis: once a week, leads to psychotic symptoms - states his dad will get mad No known hx of IVDU Social history Born and raised in [place], [place], has a 1/2 brother and 1/2 sister, parents still . Endorse physical discipliine but denies abuse. Highest grade completed: high school Family History Mental Illness: "my dad probably but he doesnt get help" Alcohol/other drug use: endorses alcoholism runs in the Suicide completions: denies Current Environment Living Situation: homeless snf [place] Relationships: dog- vera jonelle roger, parents are supportive (but he is not allowed to stay at their house) Spiritual: endorses being spiritual Hobbies/ Other interests: "nothing really makes me happy" states that every in life is boring, states this is why he likes to take adderall but he hasn't been able to attain it because he is living at the snf Current occupation: unemployed on SSI Income/rent/concerns about paying bills or feeding family: denies Hx: denies Today on Assessment: Sleep and mood have stabilized, no longer in crisis, psychotic features no longer prominent able to present a verbalized rational thought process for meeting his basic needs and obtaining further psychiatric care outpatient. [facility], has a bike, has over 1000$ in his checking account to buy food, states he is committed to sobriety, has a follow up on with psychiatric provider- Niranjan, motivated to find a job even though he is on disabilty. When asked how he will stay out of the hospital he stated, "not smoke marijuana" Psychiatric Medications: Quetiapine 300 mg po qhs Pioneer 600 mg po qd Recent PRNS: Thorazine- for acute agitation Hydroxyzine- Side Effects: Denies No evidence of TD, EPS AIMs: 0 Review of Psychiatric Symptoms: Mood: "great" states he is slightly sad because of all the hospitalizations this month Suicide/self-harm: denies Sleep: "amazing" estimates 10 hours Appetite: adequate, sufficient- hospital food is not appetizing Energy: "plenty of energy" Anxiety: a little anxiety today about discharging today, reports its manageable Irritability: denies Homicidal/Anger: denies Hallucinations/Paranoia: denies Trauma symptoms: denies Symptoms related to substance withdrawal: denies cravings for marijuna Mental Status Evaluation General Appearance: street clothes, well groomed Eye contact: consistent with social norms Demeanor: engaged Orientation: to person, place, time, situation Speech: Appropriate rate/rhythm/volume Psychomotor Activity: within normal range Abnormal Body Movements: none observed Mood: "good" Affect: constricted Suicidality: denies suicidal ideation Homicidally: denies Thought content: wnl Thought process: goal-directed Thought perceptions: none noted or observed Attention: appear attentive Insight: good Judgment: good - - Current Medical Problems: 08/26/25 li level 0.2 (states he hasnt been taking it consistently) Medical History Cardiac HX: Denies TBI Hx: head injury 4 years ago- feel and hit a toilet Seizure Hx: denies MOISES Hx: denies - - Discharge Diagnoses Schizoaffective disorder, current episode hypomanic Marijuana use disorder Tobacco use disorder - Discharge Assessment Niranjan is a 24 year old male who presents stable for discharge, treated for Schizoaffective disorder, and marijuana use disorder recently left an inpatient unit, [facility], used marijuana use and stopped medication leading to acute psychotic symptoms which appears to be the zhao factors leading to admitted. He was open about his frequent emergency department and inpatient admissions the past few months and how marijuana has been a contributing factor as well as not taking his medication consistently. Since being on the unit and restarting Seroquel and lithium his sleep and mood have stabilized, no longer in crisis able to verbalize a rational plan to meet his basic needs as well as attain psychiatric services in the community. He reports he is motivated to remain sober from marijuana as this has been the zhao factor for acute psychotic symptoms. He reports he is motivated to maintain his current medication regimen and has a follow up on Thursday with a medication provider to further address. Safety risk: low risk of imminent self-harm, low risk of externalized violent behaviors Discharge Plan Continue Quetiapine 300 mg Continue Pioneer 600 mg Follow up with Raymond CALV[facility]- [phone]- appointment ThursdayAugust 29 [facility] No access to firearms Safety plan established, reviewed, copy sent home (copy in the chart) Spent approximately 45 minutes reviewing records and test results, assessing and treatment planning, completing care coordination and documenting the encounter. Discussed risks, including possible adverse effects, and benefits of treatment recommendations including no treatment. Voice recognition software may have been used to dictate this note. There may be errors due to use of such software. Reporting of serious errors is appreciated. *Problems/Diagnosis: (1) Schizoaffective disorder Total Time Spent on D/C: > 30 Minutes Counseling Services Smoking & Tobacco Cessation: 3-10 Minutes CODING VISIT-PSYCHIATRY Date of Service: Aug 27, 2025 Billing Provider: JULISSA BARRAGAN DNP Psych Common Visit Codes: 97584-ADL/OBS DISCH DAY >30min JULISSA BARRAGAN DNP Aug 27, 2025 19:47
== END 2025-08-27 13:51 | disposition home or self-care (01) | DRG 885 ==
LOC: ADULT MH 14:27
PROVIDERS: ADMIT Psychiatry & Neurology Psychiatry; ATTEND Psychiatry & Neurology Psychiatry
DX: F25.0 Schizoaffective disorder, bipolar type (principal); R45.851 Suicidal ideations; F12.10 Cannabis abuse, uncomplicated; F17.210 Nicotine dependence, cigarettes, uncomplicated; Z91.52 Personal history of nonsuicidal self-harm; E80.6 Other disorders of bilirubin metabolism; Z79.899 Other long term (current) drug therapy
CPT/HCPCS: 36415; 80053; 80061; 80178; 82248; 83690; 84443; 85025; 87081; Q0161; Q0177